=== PATIENT | female | born 1960 | race Caucasian/White ===

== ENCOUNTER → 2017-02-05 | Outpatient (CLI) | payer OTHER ==
[~2017-02-05] MED LIST: ASPIR 8181 MG PO; FISH OIL 1,0001 EAC5 PO; FLEXERIL 10 MG10 MG PO; HYDROCHLOROTHIA25 MG PO; NORCO 5-325 TA1 EACH PO; TENORMIN 50 MG50 MG PO; ZANTAC 150 MG150 MG PO; ZESTRIL10 MG PO; ZOCOR20 MG PO
[2017-02-05 08:54] LABS: HEMOGLOBIN 15.5 gm/dl (12.3-15.3); RED BLOOD COUNT 4.88 M/UL (4.00-5.10); WHITE BLOOD COUNT 7.4 K/UL (4.5-11.0)
== END ==
LOC: OPSV2 08:00
PROVIDERS: Obstetrics & Gynecology
DX: Z01.812 Encounter for preprocedural laboratory examination (principal); D07.1 Carcinoma in situ of vulva; I10 Essential (primary) hypertension
CPT/HCPCS: 36415; 80048; 81001; 85025

== ENCOUNTER → 2017-02-11 | Day surgery (SDC) | payer OTHER | END | disposition home or self-care (01) | LOC: OR 06:51 | PROVIDERS: Obstetrics & Gynecology | PROC: 0UBM0ZZ Excision of Vulva, Open Approach (ICD-10-PCS; 2017-02-11) | PROC: 0HQAXZZ Repair Inguinal Skin, External Approach (ICD-10-PCS; principal; 2017-02-11 08:45) | DX: N90.1 Moderate vulvar dysplasia (principal); I10 Essential (primary) hypertension; K21.9 Gastro-esophageal reflux disease without esophagitis; M19.90 Unspecified osteoarthritis, unspecified site; F17.210 Nicotine dependence, cigarettes, uncomplicated; Z85.828 Personal history of other malignant neoplasm of skin; Z82.49 Family history of ischemic heart disease and other diseases of the circulatory system; Z79.1 Long term (current) use of non-steroidal anti-inflammatories (NSAID); Z79.82 Long term (current) use of aspirin; Z79.899 Other long term (current) drug therapy; Z98.890 Other specified postprocedural states | CPT/HCPCS: 11403; J1885; J2250; J2405; J2795; J7120 ==

== ENCOUNTER 2021-03-31 15:53 | Emergency (ER) | payer OTHER ==
[~2021-03-31 15:53] MED LIST changes: +LODINE CAP 300300 MG PO
[2021-03-31] MEDS ORDERED: CEPHALEXIN500 M1 PO (19:25)
[2021-03-31] MEDS ORDERED: BACTRIM DS TAB1 EACH PO (19:25)
== END 2021-03-31 19:38 | disposition home or self-care (01) ==
LOC: ER1 15:53
DX: L03.116 Cellulitis of left lower limb (principal); I10 Essential (primary) hypertension; E78.5 Hyperlipidemia, unspecified; F17.200 Nicotine dependence, unspecified, uncomplicated; Z23 Encounter for immunization
CPT/HCPCS: 90471; 90715; 99282

== ENCOUNTER → 2022-05-29 | Outpatient (CLI) | payer OTHER ==
[~2022-05-29] MED LIST changes: +BACTRIM DS TAB1 EACH PO; +CEPHALEXIN500 M1 PO
== END ==
LOC: KOH-I 11:28
DX: M54.50 Low back pain, unspecified (principal); M25.552 Pain in left hip; M47.816 Spondylosis without myelopathy or radiculopathy, lumbar region; M47.817 Spondylosis without myelopathy or radiculopathy, lumbosacral region
CPT/HCPCS: 72100; 73502

== ENCOUNTER → 2022-06-23 | Outpatient (CLI) | payer OTHER | LOC: KOH-I 10:58 | DX: M54.50 Low back pain, unspecified (principal); M47.816 Spondylosis without myelopathy or radiculopathy, lumbar region | CPT/HCPCS: 72148 ==